=== PATIENT | male | born 1995 | race Caucasian/White ===

== ENCOUNTER 2016-09-08 09:31 | Emergency (ER) | payer OTHER ==
[~2016-09-08] VITALS: Ht 170.2 cm; Wt 106.2 kg
[~2016-09-08 09:31] MED LIST: ACET500C5 PO; AMO500 PO; AZIT250T94 PO; IBUP-1542 PO; IBUP400T22 PO; PROM6.25 PO; UDROBDM PO
[2016-09-08 09:45] VITALS: Ht 170.2 cm; Wt 106.2 kg
--- NOTE | 2016-09-08 10:27 | RADRPT ---
PROCEDURE: Chest Radiograph. CLINICAL INDICATION: Cough. Asthma. TECHNIQUE: Single frontal chest radiograph. COMPARISON: None available FINDINGS: The cardiomediastinal silhouette is within normal limits. No infiltrate or effusion is seen. Th e bones are intact. IMPRESSION: 1. Unremarkable chest radiograph. RPTAT: KK .Cullen Solares MD, MD Date Time Electronically viewed and signed by .Cullen Solares MD, on 09/08/2016 10:26 .B/
--- NOTE | 2016-09-08 10:29 | ERD ---
ER Documentation Chief Complaint Date/Time DATE: 09/08/16 TIME: 10:27 Chief Complaint has asthma exascerbation, coughing x 2 weeks HPI This patient is 21-year-old male with history of asthma presenting to the emergency department for cough, wheezing, and sore throat ongoing for the past 3 weeks. The patient states his symptoms are worse at night. Patient was seen by his PCP about 1 week ago and was given prescriptions for Promethazine DM, ibuprofen, and an inhaler. The patient states he has had no relief from these medications. Patient denies fevers, chills, or other symptoms at this time. ROS All systems reviewed and are negative except as per history of present illness. Medications Home Meds Active Scripts Methylprednisolone* (Medrol* DOSE PACK) 4 Mg/Dose-Pack Tab.ds.pk, 4 MG PO . DIRECTED, #1 PACKET Prov:GLADYS COVINGTON PA-C 09/08/16 Benzonatate* (Benzonatate*) 200 Mg Capsule, 200 MG PO TID Y for COUGH, #20 CAP Prov:GLADYS COVINGTON PA-C 09/08/16 Albuterol Sulfate* (Ventolin HFA*) 18 Gm Hfa.aer.ad, 2 PUFF INHALATION Q4H, #1 INHALER Prov:GLADYS COVINGTON PA-C 09/08/16 Ibuprofen* (Motrin*) 400 Mg Tab, 400 MG PO Q6 for 7 Days, #30 TAB 0 Refills Prov:FER CROUCH PA-C 06/05/16 Acetaminophen* (Tylophen*) 500 Mg Capsule, 1 CAP PO Q6H Y for PAIN AND OR ELEVATED TEMP, #30 CAP 0 Refills Prov:FER CROUCH PA-C 06/05/16 Guaifenesin-Dextromethorphan* (Robitussin* DM) 100MG/10MG/5ML Syrup, 5 ML PO Q6H Y for COUGH for 6 Days, #120 ML 0 Refills Prov:FER CROUCH PA-C 06/05/16 Amoxicillin* (Amoxicillin*) 500 Mg Cap, 500 MG PO TID for 7 Days, #21 CAP 0 Refills Prov:FER CROUCH PA-C 06/05/16 Promethazine w/Codeine* (Phenergan w/Codeine* Syrup) 5 Ml Syrup, 5 ML PO Q4H Y for COUGH for 5 Days, ML 6 OZ Prov:AMA ROBLEDO MD 07/12/15 Ibuprofen* (Motrin*) 600 Mg Tab, 600 MG PO Q6, #14 TAB Prov:AMA ROBLEDO MD 07/12/15 Azithromycin* (Zithromax*) 250 Mg Tablet, 250 MG PO .ZPACK DIRECTED, #6 TAB TAKE 500 MG (2 TABS) THE FIRST DAY THEN 250 MG (1 TAB) DAYS 2-5 Prov:AMA ROBLEDO MD 07/12/15 Allergies Allergies: Coded Allergies: No Known Allergy (Unverified , 09/08/16) PMhx/Soc History of Surgery: Yes (ingrown tumor removed from neck) Anesthesia Reaction: No Hx Neurological Disorder: No Hx Respiratory Disorders: Yes (asthma) Hx Cardiac Disorders: No Hx Psychiatric Problems: No Hx Miscellaneous Medical Probl: No Hx Alcohol Use: No Hx Substance Use: No Hx Tobacco Use: No Smoking Status: Never smoker FmHx Noncontributory for chief complaint Physical Exam Vitals Vital Signs Date Time Temp Pulse Resp B/P Pulse Ox O2 Delivery O2 Flow Rate FiO2 09/08/16 09:45 97.3 88 18 168/88 99 Physical Exam INITIAL VITAL SIGNS: Reviewed by me. GENERAL: Alert and interactive. No acute distress. HEAD: Head is normocephalic and atraumatic. EYES: EOMI. No scleral icterus. No conjunctival injection. ENT: Moist mucosa. NECK: Supple. Full range of motion. RESPIRATORY: Normal respiratory effort. Mild inspiratory wheezing noted in the left upper lung field. There are no crackles or rhonchi auscultated. CV: Regular rate and rhythm. Normal S1 S2. No S3 or S4. No murmurs. ABDOMEN: Soft, non-distended, non-tender. No guarding. No rebound. No masses. EXTREMITIES: No deformity. SKIN: Warm and dry. NEUROLOGIC: Alert and oriented x 4. Speech is normal. Moves all extremities equally. No motor or sensory deficits noted. Results 24 hrs Current Medications Medications (Trade) Dose Ordered Sig/Laci Route PRN Reason Start Time Stop Time Status Last Admin Dose Admin Dexamethasone (Decadron) 10 mg ONCE ONCE IM 3/1/17 10:30 09/08/16 10:31 DC 09/08/16 10:08 Procedures/MDM EMERGENCY DEPARTMENT COURSE / MEDICAL DECISION MAKING: This is a 21-year-old male who comes to the emergency room secondary to complaints of cough, wheezing, and sore throat. The patient was given IM Decadron in the department. On re-evaluation, the patient was feeling improved. Radiology: PROCEDURE: Chest Radiograph. CLINICAL INDICATION: Cough. Asthma. TECHNIQUE: Single frontal chest radiograph. COMPARISON: None available FINDINGS: The cardiomediastinal silhouette is within normal limits. No infiltrate or effusion is seen. The bones are intact. IMPRESSION: 1. Unremarkable chest radiograph. RPTAT: KK .Cullen Solares MD, MD Date Time Electronically viewed and signed by .Cullen Solares MD, MD on 2016 10:26 The primary diagnosis is asthma exacerbation. I have low suspicion for pulmonary embolism, pneumothorax, aortic dissection, bronchitis, pneumonia, or other emergent conditions at this time. Patient's blood pressure was elevated (>120/80) but appears stable without evidence of hypertension emergency or urgency. The patient was counseled about the risks of hypertension and urged to pursue outpatient monitoring and therapy within a week with their primary care physician. Discharge: I have discussed the lab results and diagnostic findings with the patient and answered any questions or concerns. The patient was given copies of his chest x-ray results. The patient was discharged with a prescription for benzonatate, Medrol Dosepak and albuterol inhaler. The patient was advised to followup with their PMD in 1-2 days and to return to the Emergency Department if there are any new or worsening symptoms. The patient understood and agreed with the diagnosis, treatment and plan. The patient is stable for discharge at this time. Departure Diagnosis: Primary Impression: Asthma with acute exacerbation Asthma severity: unspecified severity Qualified Code: J45.901 - Asthma with acute exacerbation, unspecified asthma severity Additional Impression: Cough Condition: Fair Patient Instructions: Asthma Medications, Cough, Chronic, Uncertain Cause, ( Adult) Additional Instructions: Follow-up with your primary care physician within 1 week. Return to the emergency department immediately should you have any new or worsening symptoms, uncontrolled fevers, or other unexplained symptoms. Take all medications as directed. GLADYS COVINGTON PA-C Sep 08, 2016 10:29
[2016-09-08] MEDS ORDERED: DEXAMETHASONE 10 MG/ML 1 ML INJ IM ONE (10:30)
[2016-09-08] MEDS ORDERED: ALBU18HF INHALATION (10:33)
[2016-09-08] MEDS ORDERED: BENZ200C43 PO (10:34)
[2016-09-08] MEDS ORDERED: MED4DP PO (10:34)
== END 2016-09-08 10:40 | disposition home or self-care (01) ==
LOC: FTE 09:31
DX: J45.901 Unspecified asthma with (acute) exacerbation (principal)
CPT/HCPCS: 71010; 96372; J1100; Z7502

== ENCOUNTER 2017-03-21 11:28 | Emergency (ER) | payer OTHER ==
[~2017-03-21] VITALS: Ht 170.2 cm; Wt 113.0 kg
[~2017-03-21 11:28] MED LIST changes: +ALBU18HF INHALATION; +BENZ200C43 PO; +MED4DP PO
[2017-03-21 11:39] VITALS: Ht 170.2 cm; Wt 113.0 kg
--- NOTE | 2017-03-21 13:35 | ERD ---
ER Documentation Chief Complaint Date/Time DATE: 03/21/17 TIME: 13:33 Chief Complaint COUGH X2WKS, WORSE @ NIGHT HPI 21 year old male Comes in with a mildly productive cough he has had for 2 weeks. Patient states he has had intermittent low-grade fever as well. Patient reports he is coughing whitish colored sputum, no hemoptysis. He denies chest pain, shortness of breath. He denies recent travel. ROS All systems reviewed and are negative except as per history of present illness. Medications Home Meds Active Scripts Guaifenesin/Codeine Phosphate (CHERATUSSIN AC SYRUP) 118 Ml Liquid, 5 ML PO Q4H Y for COUGH, #118 ML Prov:JAZMYN CRISTOBAL PA-C 03/21/17 Azithromycin* (Zithromax*) 250 Mg Tablet, 250 MG PO .ZPACK DIRECTED, #6 TAB TAKE 500 MG (2 TABS) THE FIRST DAY THEN 250 MG (1 TAB) DAYS 2-5 Prov:JAZMYN CRISTOBAL PA-C 03/21/17 Methylprednisolone* (Medrol* DOSE PACK) 4 Mg/Dose-Pack Tab.ds.pk, 4 MG PO . DIRECTED, #1 PACKET Prov:GLADYS COVINGTON PA-C 09/08/16 Benzonatate* (Benzonatate*) 200 Mg Capsule, 200 MG PO TID Y for COUGH, #20 CAP Prov:GLADYS COVINGTON PA-C 09/08/16 Albuterol Sulfate* (Ventolin HFA*) 18 Gm Hfa.aer.ad, 2 PUFF INHALATION Q4H, #1 INHALER Prov:GLADYS COVINGTON PA-C 09/08/16 Ibuprofen* (Motrin*) 400 Mg Tab, 400 MG PO Q6 for 7 Days, #30 TAB 0 Refills Prov:FER CROUCH PA-C 06/05/16 Acetaminophen* (Tylophen*) 500 Mg Capsule, 1 CAP PO Q6H Y for PAIN AND OR ELEVATED TEMP, #30 CAP 0 Refills Prov:FER CROUCH PA-C 06/05/16 Guaifenesin-Dextromethorphan* (Robitussin* DM) 100MG/10MG/5ML Syrup, 5 ML PO Q6H Y for COUGH for 6 Days, #120 ML 0 Refills Prov:FER CROUCH PA-C 06/05/16 Amoxicillin* (Amoxicillin*) 500 Mg Cap, 500 MG PO TID for 7 Days, #21 CAP 0 Refills Prov:WILLAFER ARELLANO 06/05/16 Promethazine w/Codeine* (Phenergan w/Codeine* Syrup) 5 Ml Syrup, 5 ML PO Q4H Y for COUGH for 5 Days, ML 6 OZ Prov:AMA ROBLEDO MD 07/12/15 Ibuprofen* (Motrin*) 600 Mg Tab, 600 MG PO Q6, #14 TAB Prov:AMA ROBLEDO MD 07/12/15 Azithromycin* (Zithromax*) 250 Mg Tablet, 250 MG PO .ZPACK DIRECTED, #6 TAB TAKE 500 MG (2 TABS) THE FIRST DAY THEN 250 MG (1 TAB) DAYS 2-5 Prov:AMA ROBLEDO MD 07/12/15 Allergies Allergies: Coded Allergies: No Known Allergy (Unverified , 09/08/16) PMhx/Soc History of Surgery: Yes (ingrown tumor removed from neck) Anesthesia Reaction: No Hx Neurological Disorder: No Hx Respiratory Disorders: Yes (asthma) Hx Cardiac Disorders: No Hx Psychiatric Problems: No Hx Miscellaneous Medical Probl: No Hx Alcohol Use: No Hx Substance Use: No Hx Tobacco Use: No Physical Exam Vitals Vital Signs Date Time Temp Pulse Resp B/P Pulse Ox O2 Delivery O2 Flow Rate FiO2 03/21/17 11:39 99.2 109 18 141/90 97 Physical Exam \General: Well-developed, well-nourished. The patient appears in no acute distress. HEENT: Head is normocephalic, atraumatic. No scleral icterus. Pupils are equal , round, and reactive. Oral mucous membranes are moist. No pharyngeal erythema. Neck: Supple. Nontender. Lungs: Clear to auscultation. Normal air movement. Heart: Regular rate and rhythm. S1 and S2 are normal. No murmurs, gallops, or rubs. Abdomen: Soft, nontender, nondistended. Bowel sounds are normoactive. Extremities: No clubbing or cyanosis. Normal pulses. Moving extremities x 4. No weakness. Neurologic: Alert and oriented 3. No focal deficits. Skin: Normal turgor. No rash or lesions. Results 24 hrs DIAGNOSTIC IMAGING REPORT Patient: DREA TEJEDA : 1995 Age: 21 Sex: M MR #: [id number] DOS: 03/21/17 1328 Ordering MD: JAZMYN CRISTOBAL PA-C Location: [facility] Room/Bed: PROCEDURE: XR Chest. CLINICAL INDICATION: chest pain, cough TECHNIQUE: Single frontal view of the chest was obtained COMPARISON: 09/08/16 FINDINGS: The heart and mediastinum are within normal limits. There is a possible mild left perihilar infiltrate. There is no pleural effusion or pneumothorax. RPTAT: AA IMPRESSION: Possible mild left perihilar infiltrate. .Dg Rizzo MD, MD Date Time Electronically viewed and signed by .Dg Rizzo MD, MD on 03/21/2017 13: 45 .S/ CC: JAZMYN CRISTOBAL PA-C Procedures/MDM 21-year-old male presents with community-acquired pneumonia with left perihilar infiltrate seen on chest x-ray today. Patient will be treated based on his history, has had a cough and fever on and off. There are no signs of respiratory distress, hypoxia, he is healthy and young and stable for outpatient management. Departure Diagnosis: Primary Impression: Pneumonia Condition: Good JAZMYN CRISTOBAL PA-C Mar 21, 2017 13:35
--- NOTE | 2017-03-21 13:46 | RADRPT ---
PROCEDURE: XR Chest. CLINICAL INDICATION: chest pain, cough TECHNIQUE: Single frontal view of the chest was obtained COMPARISON: 09/08/16 FINDINGS: The heart and mediastinum are within normal limits. There is a possible mild left perihilar infiltrate. There is no pleural effusion or pneumothorax. RPTAT: AA IMPRESSION: Possible mild left perihilar infiltrate. .Dg Rizzo MD, MD Date Time Electronically viewed and signed by .Dg Rizzo MD, MD on 03/21/2017 13:45 .S/
[2017-03-21] MEDS ORDERED: AZIT250T94 PO (14:19)
[2017-03-21] MEDS ORDERED: GUAI118L22 PO (14:19)
[2017-03-21 14:25] VITALS: PULSE 88; RESP 16; TEMP 99
== END 2017-03-21 14:25 | disposition home or self-care (01) ==
LOC: FTE 11:28
DX: J18.9 Pneumonia, unspecified organism (principal); J45.909 Unspecified asthma, uncomplicated
CPT/HCPCS: 71010; Z7502